=== PATIENT | female | born 2000 | race Caucasian/White ===

== ENCOUNTER 2023-03-15 18:08 | Emergency (ER) | payer OTHER ==
[~2023-03-15] VITALS: Ht 167.6 cm; Wt 65.0 kg
[2023-03-15 18:18] VITALS: TEMP 98.8
[2023-03-15] MEDS ORDERED: DIPHENHYDRAMINE 50MG/ML VIAL IM STA (18:23)
[2023-03-15] MEDS ORDERED: HALOPERIDOL LACTATE 5MG/ML VIAL IM STA (18:23)
[2023-03-15] MEDS ORDERED: LORAZEPAM 2MG/ML CPJ IM STA (18:23)
[2023-03-15] MEDS ORDERED: LORAZEPAM 4MG/ML VIAL IM NR (19:00)
[2023-03-15 20:35] LABS: BASOPHILS % 0.2 % (0.0-2.0); EOSINOPHILS % 0.1 % (0.0-5.0); HEMATOCRIT. 44.2 % (36.0-48.0); HEMOGLOBIN. 15.1 g/dL (12.0-16.0); LYMPHOCYTES % 11.9 % (20.0-50.0); MEAN CORPUSCULAR HEMOGLOBIN 32.8 pg (28.0-32.0); MEAN CORPUSCULAR HGB CONC 34.1 g/dL (31.0-37.0); MEAN CORPUSCULAR VOLUME 96.1 fL (81.0-99.0); MEAN PLATELET VOLUME 7.3 fl (7.4-10.4); MONOCYTES % 5.5 % (2.0-8.0); NEUTROPHILS % 82.3 % (40.0-76.0); PLATELET 243 x1000/uL (130-400); RED CELL DISTRIBUTION WIDTH 13.5 % (11.6-14.6); WHITE BLOOD COUNT 12.7 x1000/uL (4.5-11.0)
[2023-03-15 20:47] LABS: ALANINE AMINOTRANSFERASE 24 IU/L (10-49); ALBUMIN 4.3 g/dL (3.2-4.8); ASPARTATE AMINOTRANSFERASE 50 IU/L (<34); BILIRUBIN TOTAL 0.6 mg/dL (0.1-1.0); CALCIUM 8.8 mg/dL (8.7-10.4); CARBON DIOXIDE 21 mEq/L (21-32); CHLORIDE 104 mEq/L (98-107); CREATININE 0.8 mg/dL (0.6-1.0); ETHANOL BLOOD 260 mg/dL (<10); GLUCOSE 100 mg/dL (70-105); POTASSIUM 3.4 mEq/L (3.5-5.1); PROTEIN TOTAL 7.5 g/dL (6.0-8.3); SODIUM 141 mEq/L (136-145)
[2023-03-15 20:49] LABS: UREA NITROGEN BLOOD < 5 mg/dL (9-23)
[2023-03-15 21:09] LABS: HCG SCREEN NEGATIVE
[2023-03-15 22:00] VITALS: O2SAT 99
[2023-03-15 23:25] VITALS: BP 102/55; PULSE 107; RESP 18
== END 2023-03-15 23:30 ==
LOC: ER 18:08
DX: S00.03XA Contusion of scalp, initial encounter (principal); F10.129 Alcohol abuse with intoxication, unspecified; Y08.89XA Assault by other specified means, initial encounter; Y93.89 Activity, other specified; Y92.89 Other specified places as the place of occurrence of the external cause; Y99.8 Other external cause status; Y90.8 Blood alcohol level of 240 mg/100 ml or more
CPT/HCPCS: 80053; 80320; 84703; 85025; 36415; 71045; 70450; 70486; 72125; 96372; 99285; J1200; J1630; J2060; Z7610 ×2; G0480